=== PATIENT | female | born 1985 | race Two or more races ===

== ENCOUNTER 2024-03-16 05:45 | Day surgery (SDC) | payer MEDICAID, SELFPAY ==
--- NOTE | 2024-03-11 12:39 | ESHP_ITS ---
RE: AYDEE NICHOLAS : 1985 DATE OF ADMISSION: 03/16/2024 HISTORY OF PRESENT ILLNESS: This is a 38-year-old 2, para 2 who is multiparous and desires voluntary sterilization. ALLERGIES: NO KNOWN DRUG ALLERGIES. PAST MEDICAL HISTORY: Class B diabetes mellitus. PAST SURGICAL HISTORY: Denies. SOCIAL HISTORY: She denies any alcohol, drug use, or smoking. FAMILY HISTORY: Diabetes and hypertension. OBSTETRIC HISTORY: In 2015, 40 week normal vaginal delivery, no complications; in 2022, 40 weeks normal vaginal delivery, no complications. REVIEW OF SYSTEMS: She denies any chest pain, palpitations, cough, fever, shortness of breath, or lower extremity pain. PHYSICAL EXAMINATION: VITAL SIGNS: Blood pressure 111/66, heart rate 71, respirations 18, temperature 98.8, weight 161 pounds. HEENT: Oropharynx and sclerae are clear. LUNGS: Clear to auscultation bilaterally. HEART: Regular rate and rhythm. ABDOMEN: Nontender. No scars noted. EXTREMITIES: Nontender. SKIN: No gross rashes or lesion. NEUROLOGIC: No focal deficit. ASSESSMENT: Multiparity, desires voluntary sterilization. PLAN: Laparoscopic bilateral tubal ligation. Informed consent was obtained. The patient was made aware of the risks, complications, alternatives, and benefits of the proposed procedure and she agrees. She is aware of the failure rate and the increased risk of tubal ectopic gestation of occurs. She is aware of the reversal methods of control and she declines those methods. She is aware that vasectomy is simpler, easier and safer with a lower failure rate and her male partner declines that option. She is aware of the risk of injury to bowel or bladder, ureters, adjacent organs, pulmonary embolism, deep vein thrombosis, injury to the vessels, the abdominal wall, hematoma abscess, wound infection, wound dehiscence, pelvic infection, reoperation to repair injury to internal organs, anesthesia complications, the possibility that a laparotomy needs to be performed to complete the procedure or control bleeding. The possibility of the procedure is not able to be completed due to severe adhesions or technical difficulties. DT: 11:18:16 TT: 12:38:00 Ref: [id number] - TID: [id number]
--- NOTE | 2024-03-15 07:00 | EKG_ITS ---
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
[2024-03-15 10:38] VITALS: BMI 30.7
[2024-03-15 11:43] LABS: Basophils % (Auto) 0 % (0-2.5); Eosinophils # (Auto) 0.3 Thou/mm3 (0.0-0.5); Eosinophils % (Auto) 4 % (0-10); Hematocrit 37.6 % (36.0-46.0); Hemoglobin 12.9 g/dL (12.0-16.0); Immature Granulocytes % (Auto) 0 % (0-0); Immature Granulocytes Auto 0.03 Thou/mm3 (0.00-0.00); Lymphocytes # (Auto) 1.3 Thou/mm3 (1.0-4.8); Lymphocytes % (Auto) 19 % (10-50); Mean Corpuscular HGB Conc 34.3 g/dl (31.0-37.0); Mean Corpuscular Hemoglobin 26.7 pg (25.0-35.0); Mean Corpuscular Volume 78 fL (80-100); Monocytes # (Auto) 0.4 Thou/mm3 (0.0-0.8); Monocytes % (Auto) 6 % (0-12); Neutrophils # (Auto) 5.1 Thou/mm3 (1.8-7.7); Neutrophils % (Auto) 71 % (37-80); Nucleated Red Blood Cell % 0 /100 WBC (0); Platelet Count 287 Thou/mm3 (140-440); Red Blood Count 4.84 Miln/mm3 (4.00-5.20); White Blood Count 7.1 Thou/mm3 (3.6-11.0)
[2024-03-15 12:01] LABS: Prothrombin Time 10.7 Seconds (9.0-12.2)
[2024-03-15 12:07] LABS: Alanine Aminotransferase 12 U/L (10-49); Albumin, Serum 5.1 gm/dL (3.5-5.0); Albumin/Globulin Ratio 2.4 (1.2-2.2); Alkaline Phosphatase 85 U/L (46-116); Anion Gap 8 (7-16); Aspartate Amino Transferase 11 U/L (0-34); BUN/Creatinine Ratio 11 Ratio (12-20); Beta HCG,Quantitative < 1 mIU/mL (<5.0); Bilirubin,Total 0.6 mg/dL (0.3-1.2); Blood Urea Nitrogen 9 mg/dL (9-23); Calcium 9.5 mg/dL (8.3-10.6); Calcium (Corrected) 9.5 mg/dL (8.5-10.1); Carbon Dioxide 26.1 mMol/L (20.0-31.0); Chloride 103 mMol/L (98-107); Creatinine (Component) 0.8 mg/dL (0.6-1.3); Estimated Creatinine Clearance 88.5 mL/min (>60); Globulin 2.1 gm/dL (2.3-3.5); Glucose 223 mg/dL (74-106); Osmolality,Calculated 279 (275-295); Sodium 137 mMol/L (136-145); Total Protein 7.2 gm/dL (5.7-8.2); eGFR > 60 See Note
--- NOTE | 2024-03-15 14:46 | SUR.PREOP ---
Pt stated she had gestational diabetes and stated she has left over metformin and takes them only when she eats junk food,
--- NOTE | 2024-03-15 15:12 | SUR.PREOP ---
Pt notified to come in at 0545 tomorrow for surgery.
[2024-03-16] VITALS (8 sets, daily range): BP systolic 100–119; BP diastolic 64–75; PULSE 77–104; RESP 14–20; TEMP 36.2–36.6; O2SAT 98–100
[2024-03-16] MEDS: RINGERS LACTATED 1000 ML 1,000 ML 30 ML IV (06:23)
--- NOTE | 2024-03-16 08:30 | SUR.PHASEI ---
0830: Pt. wakes to name then drifts back to sleep, vitals stable, breathing unlabored, no complaint of pain or nausea, x3 dermabond sites to ABD CDI, no active bleed noted, peripad in place CDI, report received from MD Roberts and Ric FUENTES.
--- NOTE | 2024-03-16 09:24 | SUR.PHASEII ---
0924: Pt. AAOx4, vitals stable, breathing unlabored, no complaint of pain or nausea, dressing to ABD CDI, no active bleed noted, peripad CDI, pt. tolerated sips of water well, pt. ambulated to wheelchair with steady gait and no assist, no complications. Gave discharge instructions to the pt. and her ride in hung[place] per pt. request, both verbalized understanding and had no further questions. Pt. left with all personal belongings.
--- NOTE | 2024-03-16 18:02 | ESOP_ITS ---
RE: AYDEE NICHOLAS : 1985 DATE OF OPERATION: 03/16/2024 PREOPERATIVE DIAGNOSIS: Multiparity, desires voluntary sterilization. POSTOPERATIVE DIAGNOSIS: Multiparity, desires voluntary sterilization. PROCEDURE PERFORMED: Laparoscopic bilateral salpingectomy. SURGEON: Rc Eckert DO [employer]ICHMENT SPECIALIST: MARILOU Licona ANESTHESIA: General. ANESTHESIOLOGIST: Dr. Roberts ESTIMATED BLOOD LOSS: 5 mL COMPLICATIONS: None. COUNTS: Correct. PATHOLOGY: Bilateral fallopian tubes. FINDINGS: Normal-appearing uterus, ovaries, and fallopian tubes. DESCRIPTION OF PROCEDURE: After proper informed consent was obtained and the patient was made aware of the risks, complications, alternatives, and benefits of the proposed procedure, she was taken to the operating room where she underwent induction of general anesthesia. She was placed in the dorsal lithotomy position. She was prepped and draped in the usual sterile fashion. A timeout was performed. An [place] uterus manipulator was placed. Attention was turned to the abdomen where the physician re-gowned and gloved and a 5-mm incision was made in the umbilical fold with tenting of the abdomen a Veress needle was inserted. Saline confirmed intraabdominal placement. An artificial pneumoperitoneum was created to 12 mmHg. The Veress needle was then removed. A 5 mm trocar was inserted with tenting up of the abdomen. The laparoscope connected to a video camera, was then utilized to visualize the pelvis and a second incision was made in the midline. Through this 5-mm incision, a 5-mm trocar was inserted 2 cm above the symphysis pubis under direct visualization of the laparoscope. Attention was then turned to the left lower quadrant where a 5-mm incision was made and a 5 mm trocar was inserted under direct visualization of the laparoscope. Using the Harmonic scalpel 1136 teagan, the right salpingectomy was performed and specimen sent to Pathology and the left salpingectomy was performed in intermittent segments and specimen sent to Pathology. Hemostasis was achieved. All instruments were removed from the abdomen. The carbon dioxide was removed from the peritoneal cavity. The incisions were closed with 4-0 Monocryl and covered with Dermabond. Attention was then turned to the vagina where the uterine manipulator was removed. There was no bleeding at the end of the procedure. She tolerated the procedure well. Counts were correct. I discussed with the patient. I discussed with the the nature of her condition, the intraoperative findings, expectation for recovery. All questions answered. DT: 08:28:09 TT: 18:01:00 Ref: [id number] - TID: [id number]
== END 2024-03-16 09:24 | disposition home or self-care (01) ==
PROVIDERS: PCP Family Medicine; Referring Provider Specialist; Visit Provider Specialist
PROC: (CPT 58670; principal; 2024-03-16 07:30)
DX: Z30.2 Encounter for sterilization (principal); E11.9 Type 2 diabetes mellitus without complications; Z64.1 Problems related to multiparity; Z01.810 Encounter for preprocedural cardiovascular examination
CPT/HCPCS: 58661; 36415; 80053; 84702; 85025; 85610; 85730; 86850; 86900; 86901; 93005; A4217; A4649; J0690; J2250; J2405; J2704; J2765; J3010; J3490; J7120; A9270; J0665